=== PATIENT | female | born 1955 | race Caucasian/White ===

== ENCOUNTER 2022-08-06 13:50 | Emergency (ER) | payer MEDICARE, SELFPAY ==
[2022-08-06 14:10] VITALS: BP 147/80; PULSE 71; RESP 18; TEMP 37; O2SAT 96; BMI 33.0
[2022-08-06 14:21] LABS: Apearance,Urine Cloudy (Clear); Color,Urine Red (Yellow); Glucose,Urine (UA) 100 (Negative); Protein,Urine 2+ (Negative)
--- NOTE | 2022-08-06 14:21 | EXP.UTC ---
Discharge Plan Disposition Patient Disposition: Home, Self-Care Condition: Good Prescriptions Prescriptions: New cefdinir 300 mg capsule 300 mg PO BID 10 Days Qty: 20 0RF phenazopyridine [Pyridium] 200 mg tablet 200 mg PO Q8H 2 Days Qty: 6 0RF Referrals Follow up/Referrals: Provider,Referral, MD [Primary Care Provider] - See instructions Activity Restrictions/Add. Instructions Additional Instructions/Restrictions: *Increase fluids. Water not Soda or Tea *Start antibiotic immediately and be sure to take as ordered for the FULL length of time although you should start to see improvement over the next 48 hours *Pyridium as needed Remember this medication will turn your urine . This is normal but it will stain what ever it gets on *You should not use Pyridium for more than 48 hours. If so , follow up with your primary physician to review urine culture and ensure that antibiotic is adequate for infection *Be SURE to follow up anytime for new or worsening symptoms with your family doctor. AND in 48 hours for urine culture results with your family doctor, if you do not have a doctor then you may call back to the [facility] for urine culture results and further treatment. We do recommend that you choose and establish care with a Primary Care Physician. ?AND follow up with them ?in 10-14 days to repeat UA to ensure infection is resolved and blood no longer present *Be sure to let your PCP know that we sent urine cultures from the [facility] so they can follow up to ensure that you area the on the correct antibiotic Call your doctor office and make appointment for 48 hours (2 days from today) ?to follow up and get the results of your urine culture and further treatment Clinical Impressions Clinical Impression: UTI (urinary tract infection) Instructions Patient Instructions: DI for Urinary Tract Infection (UTI), Urinary Tract Infection Discharge ED Provider: Criselda Pedroza [facility] [place] HPI General Stated complaint: Possible UTI Mode of Arrival: Ambulatory Source of Information: Patient Limitations: No Limitations Time Seen by Provider: 08/06/22 14:21 Description of Symptoms (Recalled from Triage Doc. by RN): PATIENT C/O PAIN AND PRESSURE WITH URINATION SINCE THIS MORNING HEENT Symptoms (Recalled from RN notes): No Resp Symptoms (Recalled from RN notes): No Skin Symptoms (Recalled from RN notes): No MS Symptoms (Recalled from RN notes): No Functional Status (Recalled from RN notes): WNL History of Present Illness Provider Complaint: Patient states she started this morning having pain and pressure when she urinates States that she gets frequent UTI's and this is how they start Denies fever, denies chills or abdominal pain States that this like other UTI she has had in the past and usually has blood in urine when she has one Related Data Previous Rx's Medication Instructions Recorded cefdinir 300 mg capsule 300 mg PO BID 10 days #20 caps 08/06/22 phenazopyridine 200 mg tablet 200 mg PO Q8H pain 2 days #6 tabs 08/06/22 (Pyridium) Allergies Allergy/AdvReac Type Severity Reaction Status Date / Time adhesive tape Allergy Verified 08/06/22 14:17 iodine Allergy Verified 08/06/22 14:17 Sulfa (Sulfonamide Allergy Verified 08/06/22 14:17 Antibiotics) Worker's Comp Is this a Worker's Comp case?: No [facility] Disclaimer: The information contained in this section may have been updated after the patient was seen, as this information can be updated by other users. Social History Smoking Status: Unknown if ever smoked alcohol intake: never current occupational status: retired Travel in the last 8 weeks: None ROS Obtained: Yes All systems reviewed & no additional complaints except as documented and Yes Systems reviewed as appropriate & no additional complaints except as documented Constitutional Constitutional: Reports system reviewed and no additional complaints, except as documented, Reports as per HPI, Denies body
[2022-08-06 14:22] LABS: Bilirubin,Urine 1+ (Negative); Blood, Urine 3+ (Negative); Ketones,Urine 1+ (Negative); UTC Leukocyte Esterase,Urine 3+ (Negative); UTC Nitrate,Urine Positive (Negative); Urobilinogen,Urine 4 EU/dl (0.2)
[2022-08-06 14:33] VITALS: BP 147/80; PULSE 71; RESP 18; TEMP 37; O2SAT 96
== END 2022-08-06 14:35 | disposition home or self-care (01) ==
PROVIDERS: Emergency Provider Nurse Practitioner
DX: N39.0 Urinary tract infection, site not specified (principal)
CPT/HCPCS: 81003; 87086; 99204; 99212; G0463

== ENCOUNTER 2023-01-26 15:14 | Emergency (ER) | payer MEDICARE, SELFPAY ==
[2023-01-26 15:25] VITALS: BP 147/74; PULSE 70; RESP 18; TEMP 37; O2SAT 97; BMI 32.7
[2023-01-26 15:35] LABS: Apearance,Urine Turbid (Clear); Bilirubin,Urine 3+ (Negative); Blood, Urine 3+ (Negative); Color,Urine Red (Yellow); Glucose,Urine (UA) 250 (Negative); Ketones,Urine 15 (Negative); Protein,Urine 3+ (Negative); Urobilinogen,Urine >=8 EU/dl (0.2)
[2023-01-26 15:36] LABS: UTC Leukocyte Esterase,Urine 3+ (Negative); UTC Nitrate,Urine Positive (Negative)
--- NOTE | 2023-01-26 15:40 | EXP.UTC ---
Discharge Plan Disposition Patient Disposition: Home, Self-Care Condition: Good Prescriptions Prescriptions: New phenazopyridine [Pyridium] 200 mg tablet 200 mg PO Q8H 2 Days Qty: 6 0RF ciprofloxacin HCl [Cipro] 500 mg tablet 500 mg PO BID 7 Days Qty: 14 0RF ondansetron 4 mg Tablet,Disintegrating 4 mg PO Q8H PRN (Reason: Nausea) Qty: 12 0RF No Action anastrozole 1 mg tablet 1 mg PO DAILY Patient Comments: TAKE 1 TABLET BY MOUTH DAILY venlafaxine 75 mg capsule,extended release 24hr 225 mg PO DAILY Patient Comments: TAKE 3 CAPSULES BY MOUTH DAILY gabapentin 400 mg capsule 400 mg PO TID Patient Comments: TAKE 1 CAPSULE BY MOUTH THREE TIMES DAILY acyclovir 400 mg tablet 400 mg PO DAILY Patient Comments: TAKE 1 TABLET BY MOUTH DAILY rosuvastatin 10 mg tablet 10 mg PO DAILY Patient Comments: TAKE 1 TABLET BY MOUTH DAILY fenofibrate 54 mg tablet 108 mg PO DAILY Patient Comments: TAKE 2 TABLETS BY MOUTH DAILY phenazopyridine [Pyridium] 200 mg tablet 200 mg PO Q8H 2 Days Qty: 6 0RF Referrals Follow up/Referrals: Provider,Referral, MD [Primary Care Provider] - See instructions Activity Restrictions/Add. Instructions Additional Instructions/Restrictions: Drink plenty of fluids. Take tylenol for pain or fever. Take the medications as directed. Follow up with your regular doctor. GO TO THE ER FOR ANY WORSENING SYMPTOMS The pyridium will make your urine turn orange, this is an expected side effect. It will stain your clothes if it comes into contact with them. We will culture the urine. That will tell what bacteria is causing your infection and which antibiotics will treat it best. Sometimes the first antibiotic we prescribe turns out to not work against different bacteria. So, make sure you follow up within 3 days if you are not getting better. Clinical Impressions Clinical Impression: UTI (urinary tract infection) Instructions Patient Instructions: Urine Culture, DI for Urinary Tract Infection (UTI), Phenazopyridine Discharge ED Provider: Neeraj Bustillos [facility] General Stated complaint: possible UTI Time Seen by Provider: 01/26/23 15:40 History of Present Illness Provider Complaint: She states that since early this am she has had dysuria, hematuria, urinary incontinence, and low back pain. She gets uti's occasionally and she states that she always has hematuria with them. Related Data Home Medications Medication Instructions Recorded Confirmed acyclovir 400 mg tablet 400 mg PO DAILY 01/26/23 01/26/23 anastrozole 1 mg tablet 1 mg PO DAILY 01/26/23 01/26/23 fenofibrate 54 mg tablet 108 mg PO DAILY 01/26/23 01/26/23 gabapentin 400 mg capsule 400 mg PO TID 01/26/23 01/26/23 rosuvastatin 10 mg tablet 10 mg PO DAILY 01/26/23 01/26/23 venlafaxine 75 mg capsule,extended 225 mg PO DAILY 01/26/23 01/26/23 release 24 hr Previous Rx's Medication Instructions Recorded phenazopyridine 200 mg tablet 200 mg PO Q8H pain 2 days #6 tabs 08/06/22 (Pyridium) ciprofloxacin HCl 500 mg tablet 500 mg PO BID 7 days #14 tabs 01/26/23 (Cipro) ondansetron 4 mg disintegrating 4 mg PO Q8H PRN Nausea #12 tabs 01/26/23 tablet phenazopyridine 200 mg tablet 200 mg PO Q8H 2 days #6 tabs 01/26/23 (Pyridium) Allergies Allergy/AdvReac Type Severity Reaction Status Date / Time adhesive tape Allergy Verified 01/26/23 15:59 iodine Allergy Verified 01/26/23 15:59 Sulfa (Sulfonamide Allergy Verified 01/26/23 15:59 Antibiotics) [facility] Disclaimer: The information contained in this section may have been updated after the patient was seen, as this information can be updated by other users. Social History (Updated 08/06/22 @ 14:28 by Criselda Pedroza APRN) Smoking Status: Unknown if ever smoked alcohol intake: never current occupational status: retired Travel in the last 8 weeks: None
[2023-01-26 16:23] VITALS: BP 147/74; PULSE 70; RESP 18; TEMP 37; O2SAT 97
== END 2023-01-26 16:22 | disposition home or self-care (01) ==
PROVIDERS: Emergency Provider Nurse Practitioner Family
DX: N39.0 Urinary tract infection, site not specified (principal); B96.29 Other Escherichia coli [E. coli] as the cause of diseases classified elsewhere; R31.9 Hematuria, unspecified; M54.59 Other low back pain
CPT/HCPCS: 81003; 87086; 96372; 99212; 99214; G0463; J0696

== ENCOUNTER 2023-07-05 20:16 | Emergency (ER) | payer MEDICARE, SELFPAY ==
[2023-07-05 20:17] VITALS: BP 143/83; PULSE 94; RESP 16; TEMP 36.5; O2SAT 97; BMI 31.9
--- NOTE | 2023-07-05 20:30 | HMH.EDGENADL ---
Discharge Plan Disposition Patient Disposition: Home, Self-Care Condition: Good Prescriptions Prescriptions: New cefdinir 300 mg capsule 300 mg PO BID 10 Days Qty: 20 0RF ketorolac 10 mg tablet 10 mg PO Q8H PRN (Reason: pain) 1 Days Qty: 10 0RF No Action phenazopyridine [Pyridium] 200 mg tablet 200 mg PO Q8H 2 Days Qty: 6 0RF ciprofloxacin HCl [Cipro] 500 mg tablet 500 mg PO BID 7 Days Qty: 14 0RF ondansetron 4 mg Tablet,Disintegrating 4 mg PO Q8H PRN (Reason: Nausea) Qty: 12 0RF anastrozole 1 mg tablet 1 mg PO DAILY Patient Comments: TAKE 1 TABLET BY MOUTH DAILY venlafaxine 75 mg capsule,extended release 24hr 225 mg PO DAILY Patient Comments: TAKE 3 CAPSULES BY MOUTH DAILY gabapentin 400 mg capsule 400 mg PO TID Patient Comments: TAKE 1 CAPSULE BY MOUTH THREE TIMES DAILY acyclovir 400 mg tablet 400 mg PO DAILY Patient Comments: TAKE 1 TABLET BY MOUTH DAILY rosuvastatin 10 mg tablet 10 mg PO DAILY Patient Comments: TAKE 1 TABLET BY MOUTH DAILY fenofibrate 54 mg tablet 108 mg PO DAILY Patient Comments: TAKE 2 TABLETS BY MOUTH DAILY phenazopyridine [Pyridium] 200 mg tablet 200 mg PO Q8H 2 Days Qty: 6 0RF Referrals Follow up/Referrals: Criselda Montiel MD [Primary Care Provider] - See instructions Activity Restrictions/Add. Instructions Additional Instructions/Restrictions: Please follow-up with your PCP this week. You likely need referral to urology to determine if there is mechanical cause of urinary tract infection. Return to the ER for any worsening change in your symptoms. Clinical Impressions Clinical Impression: Complicated urinary tract infection Discharge ED Provider: Reva Staley General Adult HPI <TORRI Call - Last Filed: 07/05/23 21:24> General Chief complaint: Urogenital-Female Stated complaint: poss UTI Time Seen by Provider: 07/05/23 20:22 History of Present Illness HPI narrative: Patient presents with suprapubic abdominal pain along with flank pain and urinary urgency and hematuria. Patient states that she gets frequent urinary tract infections and began having what she suspects as symptoms of that for a couple of days. However today she began feeling a significant amount of pain nausea and noticed significant amount of hematuria along with some small clots. She denies chest pain fever chills hemoptysis hematochezia melena nausea vomiting diarrhea. Related Data Home Medications Medication Instructions Recorded Confirmed acyclovir 400 mg tablet 400 mg PO DAILY 01/26/23 01/26/23 anastrozole 1 mg tablet 1 mg PO DAILY 01/26/23 01/26/23 fenofibrate 54 mg tablet 108 mg PO DAILY 01/26/23 01/26/23 gabapentin 400 mg capsule 400 mg PO TID 01/26/23 01/26/23 rosuvastatin 10 mg tablet 10 mg PO DAILY 01/26/23 01/26/23 venlafaxine 75 mg capsule,extended 225 mg PO DAILY 01/26/23 01/26/23 release 24 hr Previous Rx's Medication Instructions Recorded phenazopyridine 200 mg tablet 200 mg PO Q8H pain 2 days #6 tabs 08/06/22 (Pyridium) ciprofloxacin HCl 500 mg tablet 500 mg PO BID 7 days #14 tabs 01/26/23 (Cipro) ondansetron 4 mg disintegrating 4 mg PO Q8H PRN Nausea #12 tabs 01/26/23 tablet phenazopyridine 200 mg tablet 200 mg PO Q8H 2 days #6 tabs 01/26/23 (Pyridium) cefdinir 300 mg capsule 300 mg PO BID 10 days #20 caps 07/05/23 ketorolac 10 mg tablet 10 mg PO Q8H PRN pain 1 day #10 07/05/23 tabs Allergies Allergy/AdvReac Type Severity Reaction Status Date / Time adhesive tape Allergy Verified 01/26/23 15:59 iodine Allergy Verified 01/26/23 15:59 Sulfa (Sulfonamide Allergy Verified 01/26/23 15:59 Antibiotics) [facility] <TORRI Call - Last Filed: 07/05/23 21:24> [facility] Disclaimer: The information contained in this section may have been updated after the patient was seen, as this information can be updated by other users. Social History (Updated 08/06/22 @ 14:28 by Criselda Pedroza APRN) Smoking Status: Never smoker alcohol intake: never current occupational status: retired Travel in the last 8 weeks: None <TORRI Call - Last Filed: 07/05/23 21:24> ROS Obtained: Yes Systems reviewed as appropriate & no additional complaints except as documented Physical Exam <TORRI Call - Last Filed: 07/05/23 21:24> General General appearance: alert and in no apparent distress Head Head exam: atraumatic and normal inspection Eye Eye exam: Present normal appearance and PERRL ENT ENT exam: Present normal exam, normal oropharynx and mucous membranes moist Neck Neck exam: Present normal inspection and full ROM Respiratory Respiratory exam: Present normal lung sounds bilaterally and respiratory distress Cardiovascular Cardiovascular exam: Present regular rate and normal rhythm Abdominal Exam Abdominal exam: Present soft and normal bowel sounds; Absent tenderness Extremities Exam Extremities exam: Present normal inspection and full ROM Back Exam Back exam: Present normal inspection, full ROM and CVA tenderness (L) Neurological Exam Neurological exam: Present alert and oriented X3 Psychiatric Psychiatric exam: Present normal affect and normal mood Skin Skin exam: Present warm, dry and normal color Medical Decision Making <TORRI Call - Last Filed: 07/05/23 21:24> Medical Records Medical records reviewed: Yes I reviewed the patient's medical records. Lizandro Inquiry Pt receiving controlled substance: No Vital Signs: 07/05/23 20:17 07/05/23 22:10 Temperature 97.7 F 98.8 F Temperature Source Oral Oral Pulse Rate 74 Pulse Rate [Right] 94 H Respiratory Rate 16 18 Blood Pressure 136/80 Blood Pressure [Right Arm] 143/83 H Blood Pressure Mean [Right Arm] 103 Blood Pressure Source Automatic Cuff Blood Pressure Position Sitting 02 Sat by Pulse Oximetry 97 Oxygen Delivery Method Room Air Lab Data Lab results reviewed: Yes I reviewed the patient's lab results. Lab Results 07/05/23 20:25: Urine Color Red, Urine Appearance Turbid, Urine pH 6.5, Ur Specific [place] 1.025, Urine Protein 3+, Urine Glucose (UA) Negative, Urine Ketones 1+, Urine Blood 3+, Urine Nitrate Positive, Urine Bilirubin Negative, Urine Urobilinogen 4.0, Ur Leukocyte Esterase 2+ A, Urine RBC Tntc, Urine WBC 10-20, Ur Squamous Epith Cells None, Urine Bacteria 2+ 07/05/23 20:38: WBC 9.2, RBC 4.21, Hgb 13.9, Hct 42.0, MCV 99.7 H, MCH 33.0 H, MCHC 33.1, RDW 13.0, Plt Count 292, MPV 7.6, Neut % (Auto) 56.0, Lymph % (Auto) 31.2, Bath % (Auto) 7.3, Eos % (Auto) 4.0, Baso % (Auto) 1.5, Neut # (Auto) 5.2, Lymph # (Auto) 2.9, Bath # (Auto) 0.7, Eos # (Auto) 0.4, Baso # (Auto) 0.1, PT 11.2, INR 1.04, Sodium 140, Potassium 3.7, Chloride 105, Carbon Dioxide 32 H, Anion Gap 6.7, BUN 22 H, Creatinine 1.10 H, Estimated Creat Clear 69, Estimated GFR 49 L, Est GFR ( Amer) 60, Glucose 102 H, Lactate 0.9, Calcium 10.4 H, Total Bilirubin 0.5, AST 37 H, ALT 26, Alkaline Phosphatase 100, Total Protein 7.5, Albumin 4.4, Globulin 3.1, Albumin/Globulin Ratio 1.4 07/05/23 20:38 07/05/23 20:38 Orders (Tests/Meds): ED MEDICATIONS Discontinued Medications Generic Name Dose Route Start Last Admin Trade Name Freq PRN Reason Stop Dose Admin Acetaminophen 1,000 mg 07/05/23 20:31 07/05/23 20:50 Acetaminophen 1,000mg/100ml Vial IV 07/05/23 20:32 1,000 mg ONCE ONE Administration Lactated Ringer's 1,000 mls @ 999 mls/hr 07/05/23 20:31 07/05/23 20:49 Lactated Ringer's 1000 Ml Bag IV 07/05/23 21:31 999 mls/hr .Q1H1M ONE Administration Ceftriaxone Sodium 1 gm/ 50 mls @ 100 mls/hr 07/05/23 21:30 Sodium Chloride IV 07/15/23 21:29 Q24H AAMIR Ceftriaxone Sodium 1 gm/ 50 mls @ 100 mls/hr 07/05/23 21:30 07/05/23 21:34 Sodium Chloride IV 07/15/23 21:29 100 mls/hr Q24H AAMIR Administration Ketorolac Tromethamine 15 mg 07/05/23 20:31 07/05/23 20:48 Ketorolac 30mg/Ml Vial IV 07/05/23 20:32 15 mg ONCE ONE Administration ORDERS Category Date Time Status CT abdomen pelvis wo con Stat Cat Scan 07/05/23 20:43 Completed CBC w/Auto Diff [Complete Blood Count Auto Diff] Stat Lab 07/05/23 20:38 Completed CMP [Comprehensive Metabolic Panel] Stat Lab 07/05/23 20:38 Completed INR [Prothrombin Time INR] Stat Lab 07/05/23 20:38 Completed Lactic Acid Stat Lab 07/05/23 20:38 Completed UA [Urinalysis and Microscopic] Stat Lab 07/05/23 20:25 Completed Urine Culture Stat Micro 07/05/23 20:25 Received Medical Decision Narrative: In summary patient is a 88-year-old female who presents to the emergency department for evaluation of dysuria hematuria and left flank pain. Patient is hemodynamically stable upon arrival, afebrile. Physical exam is remarkable for suprapubic tenderness and tenderness in the left flank to percussion. The remainder physical exam is nonfocal and unremarkable. Differential diagnosis includes kidney stone versus complicated urinary tract infection versus pyelonephritis versus cystitis. Initial workup will be conducted with hematologic labs urinalysis CT scan stone protocol. Initial interventions include crystalloid bolus Toradol and Tylenol. Initial workup reviewed by me shows a normal white count with no shift, the remainder of her hematologic labs are nonactionable. My informal interpretation of her CT scan stone protocol shows no evidence of hydronephrosis perinephric stranding hydroureteronephrosis or stone. Upon repeat evaluation patient reported improved pain control and urgency. Given this patient received 1 g of Rocephin during her ER stay and will be transition to p.o. Omnicef. She is therefore subsequently stable for discharge <Reva Staley MD - Last Filed: 07/05/23 23:08> Vital Signs: 07/05/23 20:17 07/05/23 22:10 Temperature 97.7 F 98.8 F Temperature Source Oral Oral Pulse Rate 74 Pulse Rate [Right] 94 H Respiratory Rate 16 18 Blood Pressure 136/80 Blood Pressure [Right Arm] 143/83 H Blood Pressure Mean [Right Arm] 103 Blood Pressure Source Automatic Cuff Blood Pressure Position Sitting 02 Sat by Pulse Oximetry 97 Oxygen Delivery Method Room Air Lab Data Lab Results 07/05/23 20:25: Urine Color Red, Urine Appearance Turbid, Urine pH 6.5, Ur Specific [place] 1.025, Urine Protein 3+, Urine Glucose (UA) Negative, Urine Ketones 1+, Urine Blood 3+, Urine Nitrate Positive, Urine Bilirubin Negative, Urine Urobilinogen 4.0, Ur Leukocyte Esterase 2+ A, Urine RBC Tntc, Urine WBC 10-20, Ur Squamous Epith Cells None, Urine Bacteria 2+ 07/05/23 20:38: WBC 9.2, RBC 4.21, Hgb 13.9, Hct 42.0, MCV 99.7 H, MCH 33.0 H, MCHC 33.1, RDW 13.0, Plt Count 292, MPV 7.6, Neut % (Auto) 56.0, Lymph % (Auto) 31.2, Bath % (Auto) 7.3, Eos % (Auto) 4.0, Baso % (Auto) 1.5, Neut # (Auto) 5.2, Lymph # (Auto) 2.9, Bath # (Auto) 0.7, Eos # (Auto) 0.4, Baso # (Auto) 0.1, PT 11.2, INR 1.04, Sodium 140, Potassium 3.7, Chloride 105, Carbon Dioxide 32 H, Anion Gap 6.7, BUN 22 H, Creatinine 1.10 H, Estimated Creat Clear 69, Estimated GFR 49 L, Est GFR ( Amer) 60, Glucose 102 H, Lactate 0.9, Calcium 10.4 H, Total Bilirubin 0.5, AST 37 H, ALT 26, Alkaline Phosphatase 100, Total Protein 7.5, Albumin 4.4, Globulin 3.1, Albumin/Globulin Ratio 1.4 Orders (Tests/Meds): ED MEDICATIONS Discontinued Medications Generic Name Dose Route Start Last Admin Trade Name Freq PRN Reason Stop Dose Admin Acetaminophen 1,000 mg 07/05/23 20:31 07/05/23 20:50 Acetaminophen 1,000mg/100ml Vial IV 07/05/23 20:32 1,000 mg ONCE ONE Administration Lactated Ringer's 1,000 mls @ 999 mls/hr 07/05/23 20:31 07/05/23 20:49 Lactated Ringer's 1000 Ml Bag IV 07/05/23 21:31 999 mls/hr .Q1H1M ONE Administration Ceftriaxone Sodium 1 gm/ 50 mls @ 100 mls/hr 07/05/23 21:30 Sodium Chloride IV 07/15/23 21:29 Q24H AAMIR Ceftriaxone Sodium 1 gm/ 50 mls @ 100 mls/hr 07/05/23 21:30 07/05/23 21:34 Sodium Chloride IV 07/15/23 21:29 100 mls/hr Q24H AAMIR Administration Ketorolac Tromethamine 15 mg 07/05/23 20:31 07/05/23 20:48 Ketorolac 30mg/Ml Vial IV 07/05/23 20:32 15 mg ONCE ONE Administration ORDERS Category Date Time Status CT abdomen pelvis wo con Stat Cat Scan 07/05/23 20:43 Completed CBC w/Auto Diff [Complete Blood Count Auto Diff] Stat Lab 07/05/23 20:38 Completed CMP [Comprehensive Metabolic Panel] Stat Lab 07/05/23 20:38 Completed INR [Prothrombin Time INR] Stat Lab 07/05/23 20:38 Completed Lactic Acid Stat Lab 07/05/23 20:38 Completed UA [Urinalysis and Microscopic] Stat Lab 07/05/23 20:25 Completed Urine Culture Stat Micro 07/05/23 20:25 Received Medical Decision Narrative: In summary patient is a 88-year-old female who presents to the emergency department for evaluation of dysuria hematuria and left flank pain. Patient is hemodynamically stable upon arrival, afebrile. Physical exam is remarkable for suprapubic tenderness and tenderness in the left flank to percussion. The remainder physical exam is nonfocal and unremarkable. Differential diagnosis includes kidney stone versus complicated urinary tract infection versus pyelonephritis versus cystitis. Initial workup will be conducted with hematologic labs urinalysis CT scan stone protocol. Initial interventions include crystalloid bolus Toradol and Tylenol. Initial workup reviewed by me shows a normal white count with no shift, the remainder of her hematologic labs are nonactionable. My informal interpretation of her CT scan stone protocol shows no evidence of hydronephrosis perinephric stranding hydroureteronephrosis or stone. Upon repeat evaluation patient reported improved pain control and urgency. Given this patient received 1 g of Rocephin during her ER stay and will be transition to p.o. Omnicef. She is therefore subsequently stable for discharge Attestation: I was consulted by the JAVI, and we discussed the complexity of the problems being addressed. I approved the treatment and management plan for this patient's care in the emergency department, thus performing a substantive portion of the medical decision making. Signed, Reva Staley MD Critical Care <TORRI Call - Last Filed: 07/05/23 21:24> Critical Care Time Critical Care Time: No
[2023-07-05 20:41] LABS: Microscopic, Urine URINE MICROSCOPIC (MICROSCOPIC)
--- NOTE | 2023-07-05 20:43 | CT_ITS ---
PROCEDURE INFORMATION: Exam: CT Abdomen And Pelvis Without Contrast Exam date and time: 07/05/2023 8:52 PM Age: 68 years old Clinical indication: Abdominal pain; Flank; Left; Additional info: Left flank pain, hematuria TECHNIQUE: Imaging protocol: Computed tomography of the abdomen and pelvis without contrast. Radiation optimization: All CT scans at this facility use at least one of these dose optimization techniques: automated exposure control; mA and/or kV adjustment per patient size (includes targeted exams where dose is matched to clinical indication); or iterative reconstruction. COMPARISON: No relevant prior studies available. FINDINGS: Liver: Normal. No mass. Gallbladder and bile ducts: Normal. No calcified stones. No ductal dilation. Pancreas: Normal. No ductal dilation. Spleen: Normal. No splenomegaly. Adrenal glands: Normal. No mass. Kidneys and ureters: Normal. No hydronephrosis. Stomach and bowel: Unremarkable. No obstruction. No mucosal thickening. Appendix: No evidence of appendicitis. Intraperitoneal space: Unremarkable. No free air. No significant fluid collection. Vasculature: Atherosclerotic calcification of aortoiliac arteries. Lymph nodes: Unremarkable. No enlarged lymph nodes. Urinary bladder: Unremarkable as visualized. Reproductive: Unremarkable as visualized. Bones/joints: Degenerative changes at multiple levels with vacuum degeneration from L3/4 to L5/S1. No acute fracture. Soft tissues: Unremarkable. IMPRESSION: No acute findings identified. No nephroureterolithiasis or hydroureter.
[2023-07-05 20:44] LABS: Appearance,Urine TURBID (Clear); Bilirubin,Urine Negative (Negative); Blood, Urine 3+ (Negative); Glucose,Urine (UA) Negative (Negative); Ketones,Urine 1+ (Negative); Leukocyte Esterase,Urine 2+ (Negative); Nitrate,Urine POSITIVE (Negative); PH,Urine 6.5 (5.0-8.5); Protein,Urine 3+ (Negative); Specific Gravity, Urine 1.025 (1.005-1.030)
[2023-07-05 20:47] LABS: Color,Urine Red (Yellow)
[2023-07-05 20:48] LABS: Basophils # 0.1 K/mm3 (0-0.2); Basophils % 1.5 % (0.1-2.0); Eosinophils # 0.4 K/mm3 (0.0-0.4); Hemoglobin 13.9 g/dL (12.2-16.2); Lymphocytes # 2.9 K/mm3 (0.7-4.5); Lymphocytes % 31.2 % (10-50); Mean Corpuscular HGB Conc 33.1 g/dL (31.8-35.4); Mean Corpuscular Volume 99.7 fl (81-99); Mean Platelet Volume 7.6 fl (7.4-10.4); Monocytes # 0.7 K/mm3 (0.1-1.0); Monocytes % 7.3 % (1.7-9.3); Neutrophils # 5.2 K/mm3 (1.8-7.8); Platelet Count 292 K/mm3 (142-424); Red Blood Count 4.21 M/mm3 (4.20-5.40); White Blood Count 9.2 K/mm3 (4.8-10.8)
[2023-07-05] MEDS: KETOROLAC 30MG/ML VIAL 15 MG IV (20:48)
[2023-07-05] MEDS: LACTATED RINGERS 1000ML 1,000 ML 999 ML IV (20:49)
[2023-07-05] MEDS: ACETAMINOPHEN 1,000MG/100ML VIAL 1000 MG IV (20:50)
--- NOTE | 2023-07-05 20:52 | PC.NURSE ---
Pt to CT at this time
[2023-07-05 20:55] LABS: Chloride 105 mmol/L (98-107)
[2023-07-05 20:56] LABS: Potassium 3.7 mmoL/L (3.5-5.1); Sodium 140 mmol/L (136-145)
[2023-07-05 20:58] LABS: Alanine Aminotransferase 26 U/L (12-78); Albumin Level 4.4 g/dl (3.5-5.0); Alkaline Phosphatase 100 U/L (38-126); Aspartate Amino Transferase 37 U/L (14-36); Bilirubin,Total 0.5 mg/dl (0.2-1.3); Blood Urea Nitrogen 22 mg/dl (7-17); Creatinine Clearance Estimated 69 mL/min (50-200); Estimated Glomerular Filt Rate 49 ml/min (>60); GFR (African American) 60 ML/MIN (>60)
[2023-07-05 20:59] LABS: Albumin/Globulin Ratio 1.4 (1.1-1.8); Anion Gap 6.7 mEq/L (5-15); Calcium 10.4 mg/dl (8.4-10.2); Carbon Dioxide 32 mmol/L (22.0-30.0); Globulin 3.1 g/dL (1.3-3.2); Glucose 102 mg/dl (74-100); INR 1.04 (0.9-1.1); Lactic Acid 0.9 mmol/L (0.7-2.1); Prothrombin Time 11.2 seconds (10.1-12.5); Total Protein,Serum 7.5 g/dl (6.3-8.2)
[2023-07-05 21:05] LABS: Bacteria,Urine 2+ /lpf; RBC,Urine TNTC #/hpf (0-3)
[2023-07-05] MEDS: CEFTRIAXONE 1 GM 1 GM in 0.9 % SODIUM CHLORIDE 50 ML IV (21:34)
[2023-07-05 22:10] VITALS: BP 136/80; PULSE 74; RESP 18; TEMP 37.1; O2SAT 94
== END 2023-07-05 22:11 | disposition home or self-care (01) ==
PROVIDERS: Physician Assistant; Emergency Provider Emergency Medicine; PCP Family Medicine
DX: N39.0 Urinary tract infection, site not specified (principal); B96.89 Other specified bacterial agents as the cause of diseases classified elsewhere; R10.30 Lower abdominal pain, unspecified; R11.0 Nausea
CPT/HCPCS: 74176; 80053; 81001; 83605; 85025; 85610; 87086; 96361; 96365; 96375; 99285; J0131; J0696

== ENCOUNTER 2025-02-08 15:22 | Outpatient (CLI) | payer MEDICARE, SELFPAY | END 2025-02-08 23:59 | disposition home or self-care (01) | LOC: LAB.DROPOF 02-09 11:10 | PROVIDERS: PCP Family Medicine; Visit Provider Student in an Organized Health Care Education/Training Program | DX: N39.0 Urinary tract infection, site not specified (principal) | CPT/HCPCS: 87086 ==